=== PATIENT | male | born 1985 | race Caucasian/White ===

== ENCOUNTER 2020-04-22 20:51 | Emergency (ER) | payer OTHER, SELFPAY ==
[2020-04-22 21:01] VITALS: BP 151/88; PULSE 98; RESP 18; TEMP 36.3; O2SAT 96; BMI 31.3
--- NOTE | 2020-04-22 21:16 | ED_ITS ---
HPI - Allergic Reaction General: Chief complaint: Allergic Reaction Stated complaint: possible allergic reaction Time Seen by Provider: 04/22/20 21:11 History of Present Illness: HPI narrative: Patient is a 34-year-old male comes to the ED with possible allergic reaction. Patient says approximately at 8:00 tonight he started breaking out in a red pruritic rash on his face and torso. Patient says he was outside and did go into the [place] briefly and might of been exposed to some plants. He has taken 50 mg tablets of Benadryl before coming to the ED. He denies any respiratory distress, tongue or throat swelling or shortness of breath. Denies any nausea/vomiting, abdominal pain. Associated symptoms: Deny abdominal pain, nausea or vomiting Review of Systems Const: Denies: fever(s), chills or fatigue Eyes: Denies: change in vision or eye discomfort ENMT: Denies: throat pain, odynophagia, nasal discharge or nasal congestion Card: Denies: chest pain, palpitations, edema, swelling of feet/ankles, dyspnea on exertion or orthopnea Resp: Denies: dyspnea, productive cough or non-productive cough GI: Denies: abdominal pain, nausea, vomiting, diarrhea, constipation or hematochezia : Denies: flank pain, difficulty urinating, dysuria or hematuria Musc: Denies: neck pain, back pain or extremity swelling Skin/Breast: Reports: rash (Pruritic rash on torso and face.), pruritus and erythema; Denies: new lesions Neuro: Denies: headache(s), numbness in extremities or weakness in extremities Physical Exam Const: COMMON NORMALS: no acute distress, patient oriented x3, healthy appearing and alert GENERAL APPEARANCE: cooperative and comfortable HENMT: COMMON NORMALS: normocephalic HEAD & SCALP: normocephalic MOUTH: Normal oral and palatal mucosa present THROAT: posterior oropharynx normal and uvula midline Eye: COMMON NORMALS: Equal, round and reactive pupils present and conjunctivae normal CONJUNCTIVA: Yes conjunctivae normal PUPIL: Yes Equal, round and reactive pupils present Neck/C-Spine: COMMON NORMALS: supple GENERAL: Yes normal visual inspection Resp: COMMON NORMALS: normal respiratory effort, No retractions, No use of accessory muscles and clear to auscultation bilaterally AUSCULTATION: clear to auscultation bilaterally Cardio: COMMON NORMALS: regular rate, regular rhythm, S1 normal heart sound pr esent, S2 normal heart sound present, No gallops present (Cardio), No clicks present (Cardio), No murmurs present (Cardio) and Peripheral pulses 2+ throughout RATE: regular rate RHYTHM: regular rhythm HEART SOUNDS: S1 normal heart sound present and S2 normal heart sound present PERIPHERAL PULSES: Peripheral pulses 2+ throughout GI: COMMON NORMALS: Normal to inspection, nondistended, normoactive bowel sounds present, Soft to palpation, non-tender and no masses PALPATION: Yes Soft to palpation : COMMON NORMALS: Yes no CVA tenderness BLADDER/KIDNEY EXAM: Yes no CVA tenderness Back/Pelvis: COMMON NORMALS: no CVA tenderness Extremity: COMMON NORMALS: normal to inspection Neuro: COMMON NORMALS: patient oriented x3 and moves all extremities SENSORIUM/ORIENTATION: Yes alert Skin: NARRATIVE SKIN EXAM: Patient has pruritic urticarial rash all throughout his torso and back and on his face. Patient does not have any visible lip tongue or periorbital swelling. GENERAL SKIN EXAM: dry skin Course Reevaluation(s): Reevaluation #1: Patient started developing a lump in his throat, so I decided to order epinephrine to give to patient. Time: 21:25 Reevaluation #2: Patient was given epinephrine at 2140. Patient says his symptoms have improved and he does not feel that lump in his throat at all anymore. His pruritic rash has improved as well. I told patient we will watch him a little bit longer before discharging him. Time: 22:25 Vital Signs: Vital signs: Vital Signs Temperature 98.0 F 04/22/20 22:48 Pulse Rate 84 04/22/20 22:48 Respiratory Rate 16 04/22/20 22:48 Blood Pressure 128/80 04/22/20 22:48 Pulse Oximetry 94 04/22/20 22:48 MDM - Allergic Reaction MDM Narrative: Medical decision making narrative: Patient is a 34-year-old male comes to the ED with an allergic reaction. Patient was having pruritic rash over his head and torso and back. Before coming to the ED patient took 50 mg of Benadryl at home. No lip or tongue swelling. While in the ED patient started complaining about feeling a lump in his throat. When patient first arrived to the ED he was given IM Solu-Medrol. I then ordered epinephrine for patient since he was complaining of the lump in his throat. Patient was given epinephrine and within 20 to 30 minutes all his symptoms had greatly improved. He had no more feeling of lump in his throat. His pruritic rash had greatly improved as well. Patient was discharged and given a prescription for prednisone. He was told to return to ED if symptoms worsen. Follow-up with PCP in 5 to 7 days for reevaluation. Patient understood and agreed with plan. Discharge Plan Discharge Patient Disposition: Home Clinical Impression: Allergic reaction Qualifiers: Encounter type: initial encounter Qualified Code(s): T78.40XA - Allergy, unspecified, initial encounter Condition: Stable Prescriptions: New prednisone 20 mg tablet 20 mg PO TID 5 Days Qty: 15 RF: 0 Discharge Orders: Discharge Order (Routine); Ordered 04/22/20 Ordered By: Pascual Saravia Referrals: Case Kohli FNP [Primary Care Provider] - Discharge Diet: Regular Discharge Activity: Resume usual activity Patient Instructions: Allergic Reaction, Urticaria (ED) Activity Restrictions/Additional Instructions: Follow-up with medical provider as directed in 5-7 days. Take medications as prescribed. Return to the ER or your medical provider if condition worsens. Please read and understand discharge instructions. If any questions, please ask. Discharge Date/Time: 04/22/20 22:50 Coding Level of Care Code ED Room Service Server for Rianna Preciado Exam Comprehensive
[2020-04-22 21:41] VITALS: O2SAT 92
[2020-04-22] MEDS: EPINEPHrine 1 mg/mL INJ 0.3 MG IM (21:48)
[2020-04-22 21:50] VITALS: PULSE 81; RESP 14; O2SAT 95
[2020-04-22 22:48] VITALS: BP 128/80; PULSE 84; RESP 16; TEMP 36.7; O2SAT 94
== END 2020-04-22 22:50 | disposition home or self-care (01) ==
PROVIDERS: Emergency Provider Physician Assistant; PCP Nurse Practitioner Family
DX: T78.40XA Allergy, unspecified, initial encounter (principal)
CPT/HCPCS: 12345; 96372; 96375; 99282; J0171; J2930

== ENCOUNTER → 2020-06-03 10:59 | Outpatient (BNVA) | payer OTHER, SELFPAY | PROVIDERS: PCP Nurse Practitioner Family; Referring Provider Nurse Practitioner Family; Visit Provider Internal Medicine | DX: E29.1 Testicular hypofunction (principal); E66.9 Obesity, unspecified; N52.9 Male erectile dysfunction, unspecified | CPT/HCPCS: 99204 ==

== ENCOUNTER → 2020-06-07 08:15 | Outpatient (BNVA) | payer OTHER, SELFPAY | PROVIDERS: PCP Nurse Practitioner Family; Visit Provider Internal Medicine | DX: E23.7 Disorder of pituitary gland, unspecified (principal); E66.9 Obesity, unspecified; Z68.32 Body mass index [BMI] 32.0-32.9, adult; N52.9 Male erectile dysfunction, unspecified; R79.89 Other specified abnormal findings of blood chemistry | CPT/HCPCS: 99214 ==

== ENCOUNTER 2020-06-07 09:40 | Outpatient (CLI) | payer OTHER, SELFPAY ==
[2020-06-07 10:35] LABS: Prolactin 227.5 ng/mL (4.0-15.2); Thyroid Stimulating Hormone 0.52 uIU/mL (0.27-4.20)
[2020-06-07 13:24] LABS: Cortisol Random 4.97 ug/mL (2.47-19.5)
[2020-06-09 15:39] LABS: Free T4 Free Thyroxine 1.03 ng/dL (0.82-1.77)
[2020-06-12 06:53] LABS: Adrenocorticotropic Hormone <5 pg/mL (6-50)
== END 2020-06-07 09:41 | disposition home or self-care (01) ==
LOC: LAB 09:44
PROVIDERS: PCP Nurse Practitioner Family; Visit Provider Internal Medicine
DX: E23.7 Disorder of pituitary gland, unspecified (principal)
CPT/HCPCS: 36415; 82024; 82533; 84146; 84439; 84443

== ENCOUNTER 2020-07-17 10:45 | Outpatient (CLI) | payer OTHER, SELFPAY ==
--- NOTE | 2020-07-17 10:50 | MR_ITS ---
WS: [id number] MRI BRAIN WITHOUT AND WITH CONTRAST, ATTENTION DIRECTED TO THE PITUITARY GLAND HISTORY: elevated prolactin, likely prolactinoma COMPARISON: None available. TECHNIQUE: Diffusion-weighted imaging, axial T2 sequence, and postcontrast images in 3 planes are per formed. High-resolution coronal and sagittal imaging performed through the pituitary region with and without intravenous gadolinium. Normal size pituitary gland. On the precontrast sequences this is a slightly prominent contour of the central gland. No discrete mass identified. Cannot confirm pituitary microadenoma. The infundibular stalk and optic chiasm are in normal position. No enhancing masses. The remaining brain is negative. No enhancing masses or significant chronic microvascular disease. No prior infarct. Ventricles are normal size. No inferior displacement of cerebellar tonsils. No signif icant sinus or mastoid air cell disease. MR/MR pituitary wo/w con* [id number] IMPRESSION: 1. Cannot confirm pituitary microadenoma. Very slightly lobulated contour of t he pituitary gland but there are no discrete masses identified within the gland . 2. Remaining brain is negative.
== END 2020-07-17 10:46 | disposition home or self-care (01) ==
LOC: RADSHAW 10:48
PROVIDERS: PCP Nurse Practitioner Family; Visit Provider Internal Medicine
DX: E23.7 Disorder of pituitary gland, unspecified (principal)
CPT/HCPCS: 70553

== ENCOUNTER → 2020-07-29 08:27 | Outpatient (BNVA) | payer OTHER, SELFPAY | PROVIDERS: PCP Nurse Practitioner Family; Visit Provider Internal Medicine | DX: E23.7 Disorder of pituitary gland, unspecified (principal); E66.9 Obesity, unspecified; N52.9 Male erectile dysfunction, unspecified; R79.89 Other specified abnormal findings of blood chemistry | CPT/HCPCS: 99213 ==

== ENCOUNTER 2020-07-31 12:05 | Outpatient (CLI) | payer OTHER, SELFPAY ==
[2020-07-31 21:35] LABS: Anion Gap 17.9 (5-19); Blood Urea Nitrogen 14 mg/dL (6-20); Calcium 9.7 mg/dL (8.5-10.5); Carbon Dioxide 24 mmol/L (22-29); Chloride 103 mmol/L (98-107); Glomerular Filtration Rate 152.4 mL/min (90-130); Glucose 73 mg/dL (65-115); Osmolality Calculated 289 mOsm/kg (285-295); Potassium 4.9 mmol/L (3.5-5.1); Sodium 140 mmol/L (136-145); Testosterone Total 137.5 ng/dL (249-836)
[2020-07-31 22:29] LABS: Follicle Stimulating Hormone 2.5 mIU/mL (1.5-12.4); Prolactin 14.76 ng/mL (4.0-15.2)
== END 2020-07-31 12:06 | disposition home or self-care (01) ==
PROVIDERS: PCP Nurse Practitioner Family; Visit Provider Internal Medicine
DX: R79.89 Other specified abnormal findings of blood chemistry (principal); E23.7 Disorder of pituitary gland, unspecified; E29.1 Testicular hypofunction
CPT/HCPCS: 80048; 83001; 83002; 84146; 84402; 84403

== ENCOUNTER → 2021-08-26 15:26 | Outpatient (BNVA) | payer OTHER, SELFPAY | PROVIDERS: PCP Nurse Practitioner Family; Visit Provider Nurse Practitioner Family | DX: Z20.822 Contact with and (suspected) exposure to COVID-19 (principal); I10 Essential (primary) hypertension; Z71.89 Other specified counseling; J06.9 Acute upper respiratory infection, unspecified; Z72.0 Tobacco use | CPT/HCPCS: 87635 ==

== ENCOUNTER 2021-10-17 09:05 | Outpatient (CLI) | payer OTHER, SELFPAY ==
[2021-10-17 10:14] LABS: Basophils # 0.1 10^3/uL (0.0-0.1); Basophils % 0.8 %; Eosinophils # 0.2 10^3/uL (0.0-0.8); Eosinophils % 1.5 %; Hemoglobin 15.1 g/dL (11.7-16.6); Mean Corpuscular HGB Conc 33.6 g/dL (30.0-36.0); Mean Corpuscular Hemoglobin 31.2 pg (28.0-34.0); Mean Platelet Volume 8.7 fL (7.4-10.4); Monocytes % 7.6 %; Neutrophils # 7.23 10^3/uL (1.8-7.7); Neutrophils % 57.5 %; Nucleated Red Blood Cells % 0 %; Platelet Count 463 10^3/cmm (130-400); Red Blood Count 4.84 10^6/uL (4.1-5.3); Red Cell Distribution Width 12.9 % (12.1-15.1); White Blood Count 12.6 10^3/uL (4.0-10.0)
[2021-10-17 10:47] LABS: Alanine Aminotransferase 34 U/L (0-41); Albumin Level 4.8 g/dL (3.5-5.2); Alkaline Phosphatase 79 IU/L (40-130); Anion Gap 16.1 (5-19); Aspartate Amino Transferase 20 U/L (0-40); Blood Urea Nitrogen 16 mg/dL (6-20); Calcium 9.6 mg/dL (8.5-10.5); Carbon Dioxide 23 mmol/L (22-29); Chloride 102 mmol/L (98-107); Chol HDL Ratio 5.68 mg/dL (1.0-5.00); Cholesterol 227 mg/dL (0-200); Ferritin 244 ng/mL (30-400); Follicle Stimulating Hormone 1.8 mIU/mL (1.5-12.4); Globulin 3.6 g/dL (1.3-4.6); Glomerular Filtration Rate 151.6 mL/min (90-130); Glucose 105 mg/dL (65-115); HDL Cholesterol 40 mg/dL (60-100); LDL Cholesterol Calculated 144 mg/dL (50-129); Luteinizing Hormone 1.4 mIU/mL (1.7-8.6); Osmolality Calculated 286 mOsm/kg (285-295); Potassium 4.1 mmol/L (3.5-5.1); Prolactin 211.9 ng/mL (4.0-15.2); Sodium 137 mmol/L (136-145); Total Bilirubin 0.3 mg/dL (0.15-1.2); Total Protein 8.4 g/dL (6.6-8.7); Triglycerides 213 mg/dL (0-150); Vitamin B12 549 pg/mL (232-1245)
[2021-10-17 10:50] LABS: Folate Level 6.3 ng/mL (4.5-32.2)
[2021-10-18 09:33] LABS: T4 Total 5.5 mcg/dL (4.9-10.5)
[2021-10-18 23:13] LABS: HEP C RNA Viral Load Quant <1.18 NOT DETECTED Log IU/mL (NOT DETECTED); HEP C RNA Viral Load Quant <15 NOT DETECTED IU/mL (NOT DETECTED)
[2021-10-20 10:21] LABS: Testosterone Total 66.2 ng/dL (249-836)
== END 2021-10-17 09:06 | disposition home or self-care (01) ==
PROVIDERS: PCP Nurse Practitioner Family; Visit Provider Nurse Practitioner Family
DX: Z13.1 Encounter for screening for diabetes mellitus (principal); Z13.6 Encounter for screening for cardiovascular disorders; Z11.59 Encounter for screening for other viral diseases; E23.7 Disorder of pituitary gland, unspecified; N52.9 Male erectile dysfunction, unspecified; R79.89 Other specified abnormal findings of blood chemistry; I10 Essential (primary) hypertension; Z91.89 Other specified personal risk factors, not elsewhere classified
CPT/HCPCS: 80053; 80061; 82607; 82728; 82746; 83001; 83002; 84146; 84403; 84436; 84443; 85025; 87522

== ENCOUNTER 2023-03-05 14:33 | Outpatient (CLI) | payer OTHER, SELFPAY ==
--- NOTE | 2023-03-05 14:43 | MR_ITS ---
WS: [id number] MRI HEAD WITHOUT AND WITH GADOLINIUM ENHANCEMENT WITH ATTENTION TO THE PITUITARY TECHNIQUE: Sagittal T1, T2 axial, T2 axial FLAIR, axial susceptibility weighted imaging, axial diffus ion weighted images, and coronal T2 images were obtained. Pre and post-T1 axial and post T1 coronal i mages. ADC and FSPGR images. Attention to the pituitary with ynamic Pituitary protocol CLINICAL INFORMATION: PITUITARY ADENOMA COMPARISON: July 17, 2020 FINDINGS: No evidence of restricted diffusion to suggest acute ischemia. Ventricular system and basilar cistern s are patent. No suspicious intracranial signal abnormalities. Normal reaves-white differentiation. Nor mal posterior fossa. Normal vascular flow voids at the skull base. No extra-axial fluid collections. No evidence of mass or mass effect. Mild mucosal thickening in the paranasal sinuses. Mastoid air patrizia ls are well aerated. Mild mucosal thickening RIGHT mastoid tip. No hemosiderin on the susceptibly samreen ghted images. Normal optic chiasm and pituitary infundibulum. Normal cavernous sinuses and Meckel's cave. Dynamic p ituitary imaging demonstrates no hypoenhancing lesions to indicate microadenoma. No evidence of sella r or suprasellar mass. No abnormal intracranial enhancement. Normal dural venous sinuses. No other russo spicious findings. MR/MR pituitary wo/w con* [id number] IMPRESSION: 1. Normal pituitary today. No evidence of sellar or suprasellar mass. No evide nce of microadenoma. 2. No evidence of restricted diffusion to suggest acute ischemia. 3. No suspicious intracranial signal abnormalities. 4. No hemosiderin on susceptibly weighted images. 5. No abnormal gadolinium enhancement. 6. Mild mucosal thickening in the paranasal sinuses and RIGHT greater than LEF T mastoid tip. 7. No other suspicious findings.
[2023-03-05] MEDS: gadobenate dimeglumine 20 mL vial IV (15:49)
== END 2023-03-05 14:34 | disposition home or self-care (01) ==
PROVIDERS: PCP Family Medicine; Visit Provider Family Medicine
DX: D35.2 Benign neoplasm of pituitary gland (principal)
CPT/HCPCS: 70553; A9577

== ENCOUNTER 2023-10-02 21:53 | Emergency (ER) | payer OTHER, SELFPAY ==
[2023-10-02 21:57] VITALS: BP 212/102; PULSE 110; RESP 18; TEMP 39.1; O2SAT 95; BMI 35.5
[2023-10-02 22:31] LABS: Influenza A by IFA negative (Negative); Influenza B by IFA negative (Negative); SARS Covid-2 Antigen negative (Negative)
[2023-10-02 22:34] LABS: Rapid Strep A Test Negative (Negative)
[2023-10-02] MEDS: ibuprofen 800 mg tablet PO (22:51)
--- NOTE | 2023-10-02 22:54 | XRR_ITS ---
PROCEDURE INFORMATION: Exam: XR Chest Exam date and time: 10/03/2023 12:12 AM Age: 38 years old Clinical indication: Cough and fever; Additional info: Fever cough TECHNIQUE: Imaging protocol: Radiologic exam of the chest. Views: 1 view. COMPARISON: No relevant prior studies available. FINDINGS: Lungs: Unremarkable. No consolidation. Pleural spaces: Unremarkable. No pleural effusion. No pneumothorax. Heart/Mediastinum: Unremarkable. No cardiomegaly. Bones/joints: Unremarkable. XR/XR chest 1V portable [id number] IMPRESSION: No acute findings.
[2023-10-03] MEDS: doxycycline 100 mg Tablet PO (01:04)
[2023-10-03] MEDS: dexamethasone 4 mg Tablet 10 MG PO (01:04)
--- NOTE | 2023-10-03 05:16 | ED_ITS ---
HPI - Fever General: Chief Complaint: Fever Stated Complaint: Sob congestion fever hallucinations med? Time Seen by Provider: 10/02/23 22:16 History of Present Illness: 38-year-old male with 1 day of fever, yo dy aches, cough, sinus pressure and congestion. Associated symptoms: Reports abdominal pain, chills, nausea and vomiting; Deny chest pain Review of Systems Const: Reports: fever(s), chills and body aches ENMT: Reports: throat pain Card: Denies: chest pain Resp: Reports: dyspnea and non-productive cough GI: Reports: abdominal pain, nausea and vomiting Musc: Denies: neck pain PFSH ED PFSH: Medical History Methamphetamine abuse in remission Hypertension Erectile dysfunction Surgical History History of vasectomy Family History Grandfather Cancer Mother Hypertension Social History Smoking and tobacco/nicotine status: current every day tobacco/nicotine user cigarettes Packs smoked per day: 0.5 Years cigarettes smoked: 20 Second hand smoke exposure: Yes Substance/Drug Use: never Physical Exam Const: COMMON NORMALS: no acute distress GENERAL APPEARANCE: ill appearing (Mildly) HENMT: COMMON NORMALS: normocephalic, atraumatic and Normal external nose present HEAD & SCALP: normocephalic and atraumatic FACE & SINUS: normal facial exam and face symmetric NOSE: Normal external nose present Eye: COMMON NORMALS: Equal, round and reactive pupils present and EOMs intact bilaterally PUPIL: Yes Equal, round and reactive pupils present Neck/C-Spine: GENERAL: Yes trachea midline Chest: CHEST: Yes Symmetrical chest wall rise Resp: COMMON NORMALS: normal respiratory effort, No retractions, No use of accessory muscles and clear to auscultation bilaterally AUSCULTATION: clear to auscultation bilaterally Cardio: COMMON NORMALS: regular rate and regular rhythm RATE: regular rate RHYTHM: regular rhythm GI: COMMON NORMALS: Normal to inspection, nondistended, normoactive bowel sounds present Extremity: COMMON NORMALS: no pedal edema Neuro: NILAM COMA SCALE: document GCS findings [place] coma scale eye o pening: Spontaneous [place] coma scale verbal response: Orientated [place] coma scale motor response: Obey commands [place] coma scale total score: 15 SENSORY EXAM: Yes extremities (intact) Psych: COMMON NORMALS: speech normal SPEECH: Yes normal speech Skin: COMMON NORMALS: no rashes or lesions noted GENERAL SKIN EXAM: no rashes or lesions noted Course Vital Signs: Vital signs: Vital Signs Temperature 102.4 F H 10/02/23 21:57 Pulse Rate 110 H 10/02/23 21:57 Respiratory Rate 18 10/02/23 21:57 Blood Pressure 212/102 10/02/23 21:57 Pulse Oximetry 95 10/02/23 21:57 Oxygen Delivery Me thod Room Air 10/02/23 21:57 MDM - Fever Medical Decision Making Swabs for strep flu and COVID are negative. He will be covered with antibiotics. His chest x-ray is negative as well. Return for worsening symptoms despite treatment. Control fever. Lab Data Radiology Impressions Chest X-Ray 10/02/23 22:54 IMPRESSION: No acute findings. Laboratory Results Influenza Type A Ag negative (Negative) 10/02/23 22:06 Influenza Type B Ag negative (Negative) 10/02/23 22:06 SARS-CoV-2 Ag (Rapid) negative (Negative) 10/02/23 22:06 Group A Strep Rapid Negative (Negative) 10/02/23 22:06 All radiology interpretation(s) finalized by discharge Discharge Plan Discharge Patient Disposition: Home Clinical Impression: Sinusitis, Bronchitis Condition: Stable Prescriptions: New doxycycline hyclate 100 mg tablet 100 mg PO BID 7 Days Qty: 14 0RF albuterol sulfate 2.5 mg /3 mL (0.083 %) solution for nebulization 2.5 mg inhalation Q6H PRN (Reason: shortness of breath or wheezing) Qty: 90 0RF No Action escitalopram oxalate [Lexapro] 10 mg tablet 10 mg PO DAILY Qty: 90 0RF Rx Instructions: 1/2 Tablet daily for 1 week then full tablet daily. hydrochlorothiazide 12.5 mg tablet 12.5 mg PO DAILY Qty: 90 0RF cabergoline 0.5 mg tablet 0.25 mg PO .twice a week Qty: 10 3RF Rx Instructions: Take 1/2 tablet by mouth twice a week. Discharge Orders: Discharge ED (Routine); Ordered 10/03/23 Ordered By: Neil Roe Referrals: Antony Alonso MD [Primary Care Provider] - 4-7 days Patient Instructions: Sinusitis (ED), Acute Bronchitis (ED), Opioid Safety, Pain Management Activity Restrictions/Additional Instructions: Return for any concerning symptoms despite treatment Coding Level of Care Code ED Director Vaccine for Rianna Preciado
== END 2023-10-03 01:05 | disposition home or self-care (01) ==
PROVIDERS: Emergency Provider Emergency Medicine; PCP Family Medicine
DX: J32.9 Chronic sinusitis, unspecified (principal); J40 Bronchitis, not specified as acute or chronic; Z11.52 Encounter for screening for COVID-19; I10 Essential (primary) hypertension; F17.210 Nicotine dependence, cigarettes, uncomplicated
CPT/HCPCS: 71045; 87081; 87426; 87804; 87880; 99284; J8540

== ENCOUNTER → 2023-10-13 11:55 | Outpatient (BNVA) | payer OTHER, SELFPAY | PROVIDERS: PCP Family Medicine; Visit Provider Nurse Practitioner Family | DX: J06.9 Acute upper respiratory infection, unspecified (principal) | CPT/HCPCS: 87400 ==

== ENCOUNTER 2025-01-11 18:49 | Emergency (ER) | payer OTHER, SELFPAY ==
[2025-01-11] VITALS (9 sets, daily range): BP systolic 165–198; BP diastolic 96–125; PULSE 75–87; RESP 16–25; TEMP 36.7; O2SAT 94–97; BMI 35.2
--- NOTE | 2025-01-11 18:53 | ECG_ITS ---
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 Measurements Intervals [place] Rate: 87 P: 66 [place]: 175 QRS: 4 QRSD: 113 T: 59 QT: 386 QTc: 466 Interpretive Statements SINUS RHYTHM POSSIBLE LEFT ATRIAL ENLARGEMENT [-0.1mV P-WAVE IN V1/V2] MODERATE INTRAVENTRICULAR CONDUCTION DELAY [110+ ms QRS DURATION] NONSPECIFIC T-WAVE ABNORMALITY No previous ECG available for comparison Electronically Signed On 01-12-2025 14:51:42 CDT by Christopher Shipman M.D. [id number]
--- NOTE | 2025-01-11 18:57 | XRR_ITS ---
PROCEDURE INFORMATION: Exam: XR Chest Exam date and time: 01/11/2025 7:00 PM Age: 39 years old Clinical indication: Pain; Chest pressure; Additional info: Cp TECHNIQUE: Imaging protocol: Radiologic exam of the chest. Views: 1 view. COMPARISON: CR XR chest 1V portable [id number] 10/03/2023 12:12 AM FINDINGS: Lungs: No consolidation. Pleural spaces: No large pleural effusion. No pneumothorax. Heart/Mediastinum: Unremarkable. No cardiomegaly. Bones/joints: No acute abnormality. XR/XR chest 1V portable [id number] IMPRESSION: No radiographic evidence of acute pulmonary process.
[2025-01-11 19:23] LABS: Basophils # 0.1 10^3/uL (0.0-0.1); Basophils % 0.7 %; Eosinophils # 0.3 10^3/uL (0.0-0.8); Eosinophils % 2.1 %; Hematocrit 41.3 % (37-53); Lymphocytes # 4.4 10^3/uL (0.8-4.8); Lymphocytes % 36.2 %; Mean Corpuscular HGB Conc 32.7 g/dL (30-55); Mean Corpuscular Hemoglobin 30.4 pg (27-33); Mean Platelet Volume 8.8 fL (7.4-10.4); Monocytes # 1.1 10^3/uL (0.2-0.9); Monocytes % 9.4 %; Neutrophils # 6.28 10^3/uL (1.8-7.7); Neutrophils % 51.4 %; Nucleated Red Blood Cells % 0 %; Platelet Count 381 10^3/cmm (157-399); Red Blood Count 4.44 10^6/uL (3.85-5.65); Red Cell Distribution Width 13.2 % (12.1-15.1); White Blood Count 12.19 10^3/uL (3.29-11.43)
--- NOTE | 2025-01-11 19:34 | ECG_ITS ---
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 Measurements Intervals [place] Rate: 85 P: 62 [place]: 172 QRS: -1 QRSD: 112 T: 64 QT: 406 QTc: 485 Interpretive Statements SINUS RHYTHM POSSIBLE LEFT ATRIAL ENLARGEMENT [-0.1mV P-WAVE IN V1/V2] MODERATE INTRAVENTRICULAR CONDUCTION DELAY [110+ ms QRS DURATION] NONSPECIFIC ST & T-WAVE ABNORMALITY No previous ECG available for comparison Electronically Signed On 01-12-2025 14:51:39 CDT by Christopher Shipman M.D. [email or web address]
[2025-01-11 19:35] LABS: Slide Review Slide Review Perform
[2025-01-11 19:41] LABS: Alanine Aminotransferase 31 U/L (0-41); Albumin Level 4.2 g/dL (3.5-5.2); Alkaline Phosphatase 84 U/L (40-130); Blood Urea Nitrogen 15 mg/dL (6-20); Calcium 9.1 mg/dL (8.5-10.5); Carbon Dioxide 23 mmol/L (22-29); Chloride 102 mmol/L (98-107); Creatinine Clr Calc Pharmacy 139.7278; Globulin 2.8 g/dL (1.3-4.6); Glomerular Filtration Rate 107.1 mL/min (90-130); Glucose 111 mg/dL (65-115); Osmolality Calculated 288 mOsm/kg (285-295); Sodium 138 mmol/L (136-145); Total Bilirubin 0.2 mg/dL (0.15-1.2)
[2025-01-11 19:42] LABS: Troponin(5th) Baseline < 6 ng/L (0-15)
[2025-01-11 19:56] LABS: Lipase 64 U/L (13-60)
--- NOTE | 2025-01-11 20:13 | ED_ITS ---
HPI - Chest Pain 2 General: Chief Complaint: Chest Pain Stated Complaint: CP high BP pain going down L arm Time Seen by Provider: 01/11/25 19:21 History of Present Illness: Patient is a middle-aged male presenting with chest pain and shortness of breath that began earlier today. Patient describes feeling pressure in the sternal area (rated 3-4/10) with radiation to the neck, mid-back (shoulder blade area), and down the right arm. Onset was approximately 6:00 PM today. The chest pain has since resolved without intervention, but patient continues to experience shortness of breath. Patient reports having shortness of breath for 'several months real bad.' No prior similar episodes of this specific chest pain pattern. Medical History: Patient has untreated hypertension. 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 Home BP readings have been significantly elevated, with readings as high as 220/115 approximately 3-4 days ago. Family History: Significant for cardiovascular disease. Father had triple bypass surgery and hypertension. Mother from stroke. 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 Current smoker. Recently had dental work with multiple teeth extracted last night. Psychosocial: Patient is experiencing grief related to his mother's one year ago. reports he has been under significant stress and has not adequately addressed his grief. Related Data Previous Rx's ?Medication ?Instructions ?Recorded escitalopram oxalate 10 mg tablet 10 mg PO DAILY #90 t abs 10/16/21 (Lexapro) hydrochlorothiazide 12.5 mg tablet 12.5 mg PO DAILY #9 0 tabs 10/16/21 cabergoline 0.5 mg tablet 0.25 mg (1/2 x 0.5 mg) PO .t wice a 10/22/21 week #10 tabs albuterol sulfate 2.5 mg/3 mL 2.5 mg (3 mL) inhalation Q6H PRN 10/03/23 (0.083 %) solution for nebulization shortness of breat h or wheezing #90 mL losartan 25 mg tablet 25 mg PO DAILY #30 tabs 12/31 09/26 Allergies Allergy/AdvReac Type Severity Reaction Status Date / Time No Known Allergies Allergy Verified 01/11/25 20:14 Review of Systems 2 General: Reports: 10 or more systems reviewed and unremarkable except in HPI and below PFSH ED 2 PFSH: Medical History Methamphetamine abuse in remission Hypertension Erectile dysfunction Surgical History History of vasectomy Family History Grandfather Cancer Mother Hypertension Social History Smoking and tobacco/nicotine status: current every day tobacco/nicotine user cigarettes Packs smoked per day: 0.5 Years cigarettes smoked: 20 Second hand smoke exposure: Yes Substance/Drug Use: never Physical Exam 2 Const: COMMON NORMALS: no acute distress, patient oriented x3 and alert HENMT: COMMON NORMALS: normocephalic and moist oral mucous membranes HEAD & SCALP: normocephalic Eye: COMMON NORMALS: Equal, round and reactive pupils present, EOMs intact bilaterally and conjunctivae normal CONJUNCTIVA: Yes conjunctivae normal P UPIL: Yes Equal, round and reactive pupils present Chest: COMMONS NORMALS: normal inspection of the chest and normal palpation of entire chest wall Resp: COMMON NORMALS: normal respiratory effort, No retractions, No use of accessory muscles, clear to auscultation bilaterally and percussion normal A USCULTATION: clear to auscultation bilaterally PERCUSSION: percussion normal GI: COMMON NORMALS: Normal to inspection, nondistended, normoactive bowel sounds present, Soft to palpation, non-tender, No hepatosplenomegaly present, no masses and no bruits PALPATION: Yes Soft to palpation and Yes No hepatosplenomegaly present Extremity: COMMON NORMALS: normal to inspection, full ROM, capillary refill normal, no joint enlargement, no clubbing, cyanosis or edema, no calf tenderness and no pedal edema Neuro: COMMON NORMALS: patient oriented x3 SENSORIUM/ORIENTATION: Yes alert Skin: COMMON NORMALS: no rashes or lesions noted, turgor normal and no jaundice GENERAL SKIN EXAM: no rashes or lesions noted and turgor normal Course 2 Vital Signs: Vital signs: Vital Signs Temperature 98.0 F 06/12/25 18:53 Pulse Rate 75 01/11/25 21:46 Respiratory Rate 25 H 01/11/25 21:46 Blood Pressure 193/120 01/11/25 21:46 Pulse Oximetry 95 01/11/25 21:46 Oxygen Delivery Me thod Room Air 01/11/25 20:46 MDM - Chest Pain Medical Decision Making 1. Chest Pain with Radiation - Concerning for possible cardiac etiology given presentation pattern (sternal pressure with radiation to neck, back, and right arm) but fairly unlikely and multiple cardiovascular risk factors. Differential includes: - Acute coronary syndrome - Anxiety/stress-related chest pain - Musculoskeletal pain - Plan: Complete cardiac workup including labs (cardiac enzymes), ECG, and monitoring of vital signs. Will reassess after results. 2. Severe Uncontrolled Hypertension (BP 198/[value not specified]) - Plan: Administer antihypertensive medication in ED to reduce BP to safer levels (Clonidine 0.1mg) - Initiate new antihypertensive regimen with medication less likely to cause drowsiness/dizziness - Patient education regarding importance of BP control and medication adherence - Recommend close follow-up with PCP for ongoing BP management 3. Chronic Shortness of Breath - Concerning given duration of 'several months' - Differential includes cardiac, pulmonary, or deconditioning etiologies - Plan: Further evaluation with chest X-ray, possible pulmonary function tests, and cardiac assessment 4. Psychosocial Stressors - Grief and stress likely contributing to overall health status - Plan: Discuss potential benefits of counseling - Provide resources for grief support 5. Smoking - Significant cardiovascular risk factor - Plan: Smoking cessation counseling and resources 6. Overall Plan: - Complete ED workup to rule out acute cardiac event - Initiate BP management with medication better suited to patient's work requirements - Arrange follow-up with primary care for comprehensive cardiovascular risk management - Emphasize importance of medication adherence and lifestyle modifications Thank patient's had serially negative EKGs he is asymptomatic now his blood pressures come down his chest pain is resolved overall I feel like the patient's at low risk for a serious bad outcome currently although we did talk about the importance of lifestyle modifications and taking his health a little bit more seriously. I think discharge home with follow-up would be reasonable. Patient had multiple reexaminations continued to remain asymptomatic blood pressure came down but then went up again a little bit but he was asymptomatic, to start him on some losartan and asked that he follow-up for repeat evaluation monitor his blood pressure and then he will need repeat basic metabolic profile on follow-up as well. Differential Diagnosis Likely acute massive pulmonary embolism, acute respiratory failure and acute myocardial infarction Lab Data 01/11/25 19:18 01/11/25 19:18 Radiology Impressions Chest X-Ray 01/11/25 18:57 IMPRESSION: No radiographic evidence of acute pulmonary process. Laboratory Results WBC 12.19 10^3/uL (3.29-11.43) H 01/11/25 19:18 RBC 4.44 10^6/uL (3.85-5.65) 01/11/25 19:18 Hgb 13.50 g/dL (11.27-16.99) 01/11/25 19:18 Hct 41.3 % (37-53) 01/11/25 19:18 MCV 93.0 fl (82-101) 01/11/25 19:18 MCH 30.4 pg (27-33) 01/11/25 19:18 MCHC 32.7 g/dL (30-55) 01/11/25 19:18 RDW 13.2 % (12.1-15.1) 01/11/25 19:18 Plt Count 381 10^3/cmm (157-399) 01/11/25 19:18 MPV 8.8 fL (7.4-10.4) 01/11/25 19:18 Neut % (Auto) 51.4 % 01/11/25 19:18 Lymph % (Auto) 36.2 % 01/11/25 19:18 [place] % (Auto) 9.4 % 01/11/25 19:18 Eos % (Auto) 2.1 % 01/11/25 19:18 Baso % (Auto) 0.7 % 01/11/25 19:18 Neut # (Auto) 6.28 10^3/uL (1.8-7.7) 01/11/25 19:18 Lymph # (Auto) 4.4 10^3/uL (0.8-4.8) 01/11/25 19:18 [place] # (Auto) 1.1 10^3/uL (0.2-0.9) H 01/11/25 19:18 Eos # (Auto) 0.3 10^3/uL (0.0-0.8) 01/11/25 19:18 Baso # (Auto) 0.1 10^3/uL (0.0-0.1) 01/11/25 19:18 Nucleated RBC % (auto) 0 % 01/11/25 19:18 Nucleated RBCs # 0.0 /100WBC 01/11/25 19:18 Sodium 138 mmol/L (136-145) 01/11/25 19:18 Chloride 102 mmol/L (98-107) 01/11/25 19:18 Carbon Dioxide 23 mmol/L (22-29) 01/11/25 19:18 BUN 15 mg/dL (6-20) 01/11/25 19:18 Creatinine 0.8 mg/dL (0.7-1.2) 01/11/25 19:18 GFR Calculation 107.1 mL/min (90-130) 01/11/25 19:18 Glucose 111 mg/dL (65-115) 01/11/25 19:18 Calculated Osmolality 288 mOsm/kg (285-295) 01/11/25 19:18 Calcium 9.1 mg/dL (8.5-10.5) 01/11/25 19:18 Total Bilirubin 0.2 mg/dL (0.15-1.2) 01/11/25 19:18 ALT 31 U/L (0-41) 01/11/25 19:18 Alkaline Phosphatase 84 U/L (40-130) 01/11/25 19:18 Troponin T Baseline < 6 ng/L (0-15) 01/11/25 19:18 Total Protein 7.0 g/dL (6.6-8.7) 01/11/25 19:18 Albumin 4.2 g/dL (3.5-5.2) 01/11/25 19:18 Globulin 2.8 g/dL (1.3-4.6) 01/11/25 19:18 Lipase 64 U/L (13-60) H 01/11/25 19:18 All radiology interpretation(s) finalized by discharge ED provider radiology interpretation(s): No acute findings EKG Data EKG 1: Interpretation: EKG timed at 1853 reveals a sinus rhythm with a moderate interventricular conduction delay with some nonspecific T wave changes. No ST elevation or significant depression. Rate is 87 rhythm. EKG time 1934 reveals sinus rhythm with a ventricular rate of 85 moderate intraventricular conduction delay and some nonspecific ST-T wave changes remained without any significant changes from prior EKG Discharge Plan Discharge Patient Disposition: Home Clinical Impression: Hypertension, Obesity (BMI 30-39.9), Abnormal ECG Condition: Stable Prescriptions: New losartan 25 mg tablet 25 mg PO DAILY Qty: 30 0RF No Action escitalopram oxalate [Lexapro] 10 mg tablet 10 mg PO DAILY Qty: 90 0RF Rx Instructions: 1/2 Tablet daily for 1 week then full tablet daily. hydrochlorothiazide 12.5 mg tablet 12.5 mg PO DAILY Qty: 90 0RF cabergoline 0.5 mg tablet 0.25 mg PO .twice a week Qty: 10 3RF Rx Instructions: Take 1/2 tablet by mouth twice a week. 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 Stop smoking and lose weight. 2. Return to the emergency department for new or worsening symptoms. Print Language: [place]al[place] Coding Level of Care Code ED Manager Merchandise for Rianna Preciado
[2025-01-11] MEDS: cloNIDine 0.1 mg Tablet PO (20:20)
--- NOTE | 2025-01-11 21:01 | ECG_ITS ---
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 Measurements Intervals [place] Rate: 78 P: 159 NV: 163 QRS: 186 QRSD: 116 T: 151 QT: 345 QTc: 393 Interpretive Statements SINUS RHYTHM ARM LEADS REVERSED [INVERTED P AND QRS IN I] Compared to ECG 01/11/2025 19:34:19 Intraventricular conduction delay no longer present T-wave abnormality no longer present Electronically Signed On 01-12-2025 15:03:26 CDT by Christopher Shipman M.D. [id number]
[2025-01-11] MEDS: losartan 50 mg Tablet 25 MG PO (22:11)
[2025-01-11 22:39] LABS: Anion Gap 16.5 (5-19); Aspartate Amino Transferase 23 U/L (0-40); Potassium 3.5 mmol/L (3.5-5.1)
[2025-01-11 22:41] LABS: Troponin 5 2HR 6.42 ng/L (0-15); Troponin 5 2HR Delta 0.42001 ABS# (0-10)
== END 2025-01-11 22:28 | disposition home or self-care (01) ==
PROVIDERS: Emergency Medicine; Emergency Provider Family Medicine; PCP Family Medicine
DX: I10 Essential (primary) hypertension (principal); R94.31 Abnormal electrocardiogram [ECG] [EKG]; R07.9 Chest pain, unspecified; F17.210 Nicotine dependence, cigarettes, uncomplicated; Z82.49 Family history of ischemic heart disease and other diseases of the circulatory system; Z98.818 Other dental procedure status; E66.9 Obesity, unspecified; Z68.35 Body mass index [BMI] 35.0-35.9, adult
CPT/HCPCS: 36415; 71045; 80053; 83690; 84484; 85025; 93005; 99285; J9999

== ENCOUNTER → 2025-03-27 10:05 | Outpatient (BNVA) | payer OTHER, SELFPAY | PROVIDERS: PCP Family Medicine; Visit Provider Family Medicine | DX: I10 Essential (primary) hypertension (principal); R79.89 Other specified abnormal findings of blood chemistry | CPT/HCPCS: 80053; 80061; 84146; 84403; 85025 ==